=== PATIENT | male | born 1975 | race Hispanic/Latino ===

== ENCOUNTER 2025-02-10 14:48 | Emergency (ER) | payer SELFPAY ==
--- NOTE | ~2025-02-10 | CT_ITS ---
EXAMINATION: CT brain wo con DATE: 02/10/2025 15:22 INDICATION: Facial numbness TECHNIQUE: Computed tomography (CT) of the head was performed without intravenous contrast. Sagittal and coronal reconstructions were performed. The mA was adjusted according to patient size. Iterative reconstruction technique was employed. The dose-length product was 605.33 mGy-cm. COMPARISON: None FINDINGS: No acute intracranial hemorrhage, acute infarction or abnormal extra axial fluid collection. Ventricles are normal and symmetric. No mass/mass effect. The orbits, paranasal sinuses and mastoid air cells are normal. IMPRESSION: 1. Normal head CT. Reviewed, dictated and finalized at location A. FIC LAW ATTORNEY IMPRESSION: 1. Normal head CT.
--- NOTE | ~2025-02-10 | XR_ITS ---
XR chest 1V portable 02/10/2025 15:30 Indication: Face numbness Procedure: AP portable chest Comparison: No prior studies for comparison. Findings: Bibasilar infiltrates may represent compressive atelectasis or developing pneumonia. Shallow inspiration. Heart size normal. No edema or pneumothorax. No significant effusion. Impression: 1: Bibasilar infiltrates may represent atelectasis or pneumonia. Reviewed, dictated and finalized at location O. TOR INFORMATION ASSISTANT Impression: 1: Bibasilar infiltrates may represent atelectasis or pneumonia.
--- NOTE | ~2025-02-10 | CT_ITS ---
EXAMINATION: CTA BRAIN/CAROTID DATE: 02/10/2025 15:52 INDICATION: Right-sided facial droop TECHNIQUE: Computed tomographic angiography (CTA) of the head and neck was performed with 100 mL Omnipaque-350 intravenous contrast. Multiplanar reconstructions and maximum intensity projection 3D-reconstructions of the carotid arteries and of the intracranial arteries were created by the technologist on a separate workstation. Automated exposure control and iterative reconstruction technique were employed.The dose-length product was 1099.66 mGy-cm. COMPARISON: Head CT dated 02/10/2025 FINDINGS: Intracranial arteries Vertebral arteries are codominant. There is no hemodynamically significant stenosis in the vertebral, basilar and internal carotid arteries. Both A1 and P1 segments are patent. There is also a patent right posterior communicating artery. There are no aneurysms identified. Cerebral arterial arborization appears symmetric. No abnormally enhancing brain lesions. Carotid arteries: The aortic arch and the great vessels arising from the arch are normal in caliber with no dissection or hemodynamically significant stenosis. There is no evident atherosclerotic plaque with 0% stenosis of the right and left carotid bulbs relative to normal distal artery lumen diameter (NASCET criteria). The visualized upper lungs are clear. Minimal cervical spondylosis. Cervical soft tissues are unremarkable. IMPRESSION: 1. No evident atherosclerotic plaque with 0% stenosis of the right and left carotid bulbs relative to normal distal artery lumen diameter (NASCET criteria). 2. Unremarkable cerebral CT angiogram with no hemodynamically significant stenosis, thrombosis or aneurysm. Reviewed, dictated and finalized at location A. WALKER IMPRESSION: 1. No evident atherosclerotic plaque with 0% stenosis of the right and left car otid bulbs relative to normal distal artery lumen diameter (NASCET criteria). 2. Unremarkable cerebral CT angiogram with no hemodynamically significant steno sis, thrombosis or aneurysm.
--- NOTE | 2025-02-10 15:07 | PC.NURSE ---
Pt. brought to stroke stop d/t R. sided facial numbness. LKW today at 1100.
[2025-02-10 15:08] VITALS: BP 165/89; PULSE 83; RESP 16; TEMP 36.3; O2SAT 97
--- NOTE | 2025-02-10 15:16 | ECG_ITS ---
Test Date: 2025-02-10 15:38:52 Measurements Intervals Manning Rate: 60 P: 44 IN: 116 QRS: 58 QRSD: 86 T: 54 QT: 416 QTc: 418 Interpretive Statements SINUS RHYTHM WITH SHORT IN INTERVAL EARLY PRECORDIAL R/S TRANSITION MINIMAL Q WAVES- DIFFUSE LEADS BORDERLINE ECG No previous ECG available for comparison Electronically Signed On 02-10-2025 16:26:24 HERB DIGGER by Omari Morales D.O.
[2025-02-10 15:24] LABS: Hematocrit 39.3 % (42.0-52.0); Hemoglobin 14.3 g/dL (14.0-18.0); Immature Granulocyte Percent A 0.5 % (0-0.5); Lymphocytes Absolute Auto 2.41 K/mm3 (0.9-3.2); Mean Corpuscular HGB Conc 36.4 g/dl (32-36); Mean Corpuscular Hemoglobin 33.4 pg (26-34); Mean Corpuscular Volume 91.8 fl (80-100); Nucleated Red Blood Cells Absolute Auto 0.000 K/mm3 (0.0-0.012); Nucleated Red Blood Cells Perc 0.0 % (0.0-0.2); Platelet Count Result 322 k/mm3 (150-375); Red Blood Count 4.28 M/mm3 (4.6-6.20); White Blood Count 13.0 K/mm3 (4.5-10.0)
[2025-02-10 15:25] VITALS: BP 145/86; PULSE 65; PULSE 68; RESP 16; RESP 21; O2SAT 97
[2025-02-10 15:34] LABS: INR 1.0; Prothrombin Time 13.2 Seconds (11.1-14.7)
[2025-02-10 15:35] LABS: Alanine Aminotransferase 25 U/L (6-50); Albumin Level 4.2 g/dL (3.5-5.1); Alkaline Phosphatase 125 U/L (38-126); Anion Gap 9 mmol/L (4-12); Aspartate Amino Transferase 36 U/L (17-59); Bilirubin,Total 0.6 mg/dL (0.2-1.3); Blood Urea Nitrogen 10 mg/dL (9-20); Calcium 8.9 mg/dL (8.4-10.2); Carbon Dioxide 23 mmol/L (22-30); Chloride 107 mmol/L (98-107); Estimated Glomerular Filt Rate > 60; Glucose 108 mg/dL (65-110); Potassium 3.6 mmol/L (3.4-5.0); Sodium 139 mmol/L (137-145); Total Protein 7.4 g/dL (6.3-8.2)
[2025-02-10 15:36] LABS: Partial Thromboplastin Time 26.0 Seconds (22.3-36.8)
[2025-02-10 15:47] LABS: Troponin I < 0.012 ng/mL (0.000-0.034)
--- NOTE | 2025-02-10 16:10 | ED.NEUROSD ---
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 Patient states that at 11:00 a.m., he had onset of right facial droop. Denies any other symptoms. He has not been around any vines or tics that he is aware of. Denies numbness, tingling. He has never had this symptom before. No medical history that he is aware of. Related Data Allergies Allergy/AdvReac Type Severity Reaction Status Date / Time No Known Allergies Allergy Verified 02/10/25 16:36 Review of Systems Review of Systems: All systems reviewed & are unremarkable except as noted in HPI and below Exam Narrative: APPEARANCE: No acute distress, nontoxic, resting in bed EYES: EOMI HEENT: Normocephalic, atraumatic, OMM RESPIRATORY: No respiratory distress Clear to auscultation bilaterally with no rhonchi wheezing or rales. CARDIOVASCULAR: Regular rate and rhythm without murmurs rubs or gallops. ABDOMINAL: Soft, nontender, nondistended, no rebound or guarding MUSCULOSKELETAl: Moves all extremities. No clubbing, cyanosis or edema. NEURO: Awake and alert. Following commands, speech normal. NIHSS 2 SKIN:: Warm, dry. No rashes lesions or abrasions PSYCHIATRIC: Normal affect/mood, Course Vital Signs Vital signs: Vital Signs Temperature 97.3 F L 02/10/25 15:08 Pulse Rate 83 02/10/25 15:08 Respiratory Rate 16 02/10/25 15:08 Blood Pressure 165/89 H 02/10/25 15:08 Pulse Oximetry 97 02/10/25 15:08 Oxygen Delivery Room Air 02/10/25 15:08 Temperature 97.3 F L 02/10/25 15:08 Pulse Rate 65 02/10/25 15:25 Respiratory Rate 16 02/10/25 15:25 Blood Pressure 145/86 H 02/10/25 15:25 Pulse Oximetry 97 02/10/25 15:25 Oxygen Delivery Room Air 02/10/25 15:08 [facility] MDM Narrative Medical decision making narrative: 49-year-old male Presenting for right facial droop. Patient seen at stroke. Initially, had an NIH SS 2 due to right facial droop. He was taken immediately to CT scan. Differentials include but are not limited to: CVA, Zaragoza's palsy, TIA, intracranial hemorrhage, electrolyte abnormality Notable exam findings: Right facial droop, no other focal findings I personally reviewed the patient's lab result. Notable lab findings: Mild leukocytosis at 13. CMP without significant abnormalities. Troponin negative. I personally reviewed the patient's images and interpret as follows: Chest x-ray: Normal cardiac silhouette, no consolidations, no pleural effusions, no pulmonary vascular congestion Chest x-ray: Normal cardiac silhouette, no consolidations, no pleural effusions, no pulmonary vascular congestion I personally reviewed the patient's EKGs: Normal sinus rhythm, normal axis, normal intervals, no acute ST or T-wave changes On re-evaluation, patient's facial droop had resolved. Suspect he may have had a TIA. I was discussing treatment options and evaluation with the patient and he is requesting to go home at this time. I did discuss the risks potential transformation to a full stroke worsening symptoms including expresses understanding and is still requesting to leave AMA this time. He be given prescriptions for aspirin and atorvastatin he was given a referral to Dr. Mena, neurology for further evaluation. Differential Diagnosis Differential Diagnosis: CVA, Zaragoza's palsy, TIA, intracranial hemorrhage, electrolyte abnormality Lab Data 02/10/25 15:16 02/10/25 15:16 Labs: Lab Results 02/10/25 02/10/25 Range/Units 15:13 15:16 WBC 13.0 H (4.5-10.0) K/mm3 RBC 4.28 L (4.6-6.20) M/mm3 Hgb 14.3 (14.0-18.0) g/dL Hct 39.3 L (42.0-52.0) % MCV 91.8 (80-100) fl MCH 33.4 (26-34) pg MCHC 36.4 H (32-36) g/dl RDW 12.2 (11.5-14.5) % Plt Count 322 (150-375) k/mm3 MPV 9.3 (7.4-10.4) fl Immature Gran % (Auto) 0.5 (0-0.5) % Neut % (Auto) 73.8 H (45.5-73.1) % Lymph % (Auto) 18.6 (18.3-44.2) % [place] % (Auto) 6.2 (2.6-8.5) % Eos % (Auto) 0.4 (0-4.4) % Baso % (Auto) 0.5 (0.2-1.2) % Lymph # (Auto) 2.41 (0.9-3.2) K/mm3 [place] # (Auto) 0.8 H (0.1-0.6) K/mm3 Eos # (Auto) 0.1 (0-0.3) K/mm3 Baso # (Auto) 0.1 (0.0-0.1) K/mm3 Abs Immat Gran (auto) 0.06 H (0.00-0.031) K/mm3 Absolute Neuts (auto) 9.6 H (1.3-6.7) K/mm3 Absolute Nucleated RBC 0.000 (0.0-0.012) K/mm3 Nucleated RBC % 0.0 (0.0-0.2) % PT 13.2 (11.1-14.7) Seconds INR 1.0 APTT 26.0 (22.3-36.8) Seconds Sodium 139 (137-145) mmol/L Potassium 3.6 (3.4-5.0) mmol/L Chloride 107 (98-107) mmol/L Carbon Dioxide 23 (22-30) mmol/L Anion Gap 9 (4-12) mmol/L BUN 10 (9-20) mg/dL Creatinine 0.92 (0.7-1.3) mg/dL Estim Creat Clear Calc Not Reportable Estimated GFR > 60 (59 - ) Glucose 108 (65-110) mg/dL POC Capillary Glucose 112 H (65-105) mg/dl Calcium 8.9 (8.4-10.2) mg/dL Total Bilirubin 0.6 (0.2-1.3) mg/dL AST 36 (17-59) U/L ALT 25 (6-50) U/L Alkaline Phosphatase 125 (38-126) U/L Troponin I < 0.012 (0.000-0.034) ng/mL Total Protein 7.4 (6.3-8.2) g/dL Albumin 4.2 (3.5-5.1) g/dL Imaging Data Radiologist's impression: ITS Impressions Head CT 02/10/25 15:28 IMPRESSION: 1. Normal head CT. Chest X-Ray 02/10/25 15:35 Impression: 1: Bibasilar infiltrates may represent atelectasis or pneumonia. Head/Neck CTA 02/10/25 16:14 IMPRESSION: 1. No evident atherosclerotic plaque with 0% stenosis of the right and left carotid bulbs relative to normal distal artery lumen diameter (NASCET criteria). 2. Unremarkable cerebral CT angiogram with no hemodynamically significant stenosis, thrombosis or aneurysm. Discharge Plan Discharge Clinical Impression: Transient cerebral ischemia Qualifiers: Transient cerebral ischemia type: unspecified Qualified Code(s): G45.9 - Transient cerebral ischemic attack, unspecified Patient Disposition: Left Against Medical Advice Condition: Stable Instructions: Transient Ischemic Attack (ED) Additional Instructions: I suspect the you had a TIA or mini-stroke today. He be preferable the stated to have a neurology evaluation and MRI. He he will be given prescriptions for atorvastatin and aspirin, take this as prescribed. You were given a to Dr. Mena, neurology, follow-up with his office the next week. Return to the ED for any new or worsening symptoms. Patient Language: Tajik Prescriptions: New atorvastatin [Lipitor] 20 mg tablet 20 mg PO DAILY Qty: 30 0RF aspirin 81 mg tablet 81 mg PO DAILY Qty: 30 0RF Follow-up/Referrals: PHYSICIAN,STORES DESPATCH HAND [Primary Care Provider, Internal Medicine]
[2025-02-10] MEDS: ATORVASTATIN 10 MG TABLET PO (16:37)
[2025-02-10] MEDS: ASPIRIN 81 MG ENTERIC TABLET PO (16:37)
--- NOTE | 2025-02-10 16:46 | PC.NURSE ---
pt left AMA before this RN had a chance to get an NIH assessment on pt
== END 2025-02-10 16:44 | disposition left against medical advice (07) ==
PROVIDERS: Emergency Provider Student in an Organized Health Care Education/Training Program
DX: G45.9 Transient cerebral ischemic attack, unspecified (principal); R94.31 Abnormal electrocardiogram [ECG] [EKG]
CPT/HCPCS: 36415; 70450; 70496; 70498; 71045; 80053; 82948; 84484; 85025; 85610; 85730; 93005; 99284; A9270; Q9967